=== PATIENT | male | born 1985 | race Caucasian/White ===

== ENCOUNTER 2016-08-17 21:55 | Emergency (ER) | payer SELFPAY ==
[2016-08-17 22:03] VITALS: BP 129/69; PULSE 69; TEMP 97.5; BMI 23.2
--- NOTE | 2016-08-17 22:44 | EDPRACDOC ---
- General Information Chief Complaint: Back Pain Stated Complaint: BACK PAIN Time Seen by Provider: 08/17/16 22:40 Information Source: Patient Mode Of Arrival: Car Home Medications: Home Medications Cyclobenzaprine HCl [Flexeril] 10 mg PO TID PRN #20 tablet 08/17/16 Naproxen Sodium 500 mg PO BID PRN #20 tablet.sa 08/17/16 Allergies/Adverse Reactions: Allergies Allergy/AdvReac Type Severity Reaction Status Date / Time propoxyphene HCl Allergy Severe Nausea/Vomi Verified 08/17/16 22:00 [From Darvon] ting codeine Allergy Intermediate Itching Verified 08/17/16 22:00 - History of Present Illness Onset: 1400 today HPI: 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 Pain Location: Reports: Bilateral, Lower, Lumbar Pain Radiates To: Reports: None Pain Caused By: Reports: Lifting Circumstances: Reports: Work-related Relevant History: Reports: None Pain Severity: Reports: Severe Pain Quality: Reports: Aching, Sharp Worsened By: Reports: Movement, Twisting Associated Signs and Symptoms: Reports: None ED Past Medical History - History Reviewed Yes Nurses notes reviewed and agree except as marked - Patient Medical History GI/ History: Reports: Diverticulosis Psychological History: Denies: Depression Systemic History: Denies: Cancer Surgical History: Reports: Hernia Surgery - Social Medical History Smoking Status: Heavy tobacco smoker (5 or more cigarettes/day or daily pipe/ cigar) EDM Review of Systems - Review of Systems Constitutional: negative: Chills, Fever Genitourinary: negative: Dysuria, Frequency Neurological: negative: Dizziness, Numbness, Weakness Musculoskeletal: Back Integumentary: No Symptoms Reported - Physical Exam Constitutional: Alert (Awake), No apparent distress Oriented to: Time, Person, Place Last recorded Vital Signs: Last Vital Signs Temp 97.5 F 08/17/16 22:00 Pulse 69 08/17/16 22:00 Resp 18 08/17/16 22:00 BP 129/69 08/17/16 22:00 Pulse Ox 99 08/17/16 22:00 Oxygen Pulse Oxygen Saturation 99 O2 Device Oxygen Flow Rate Fraction of Inspired Oxygen ( FIO2) - HEENT Head: Normal ( normocephalic) - Integumentary Skin: Normal, Warm, Dry Lymphatics: Normal (no adenopathy) - Neurologic Memory Impaired: Normal Motor Function: Normal (Normal tone, Pulses 2+ No cyanosis or edema, FROM) Cranial Nerve: Normal (CN II-X11 intact sensation, strength 5/5) Cerebellar: Normal Mood Description: Normal Perception: Normal ED Back Exam - Neurologic Motor Deficit: None - Musculoskeletal Cervical: Normal Thoracic: Normal Lumbar: Tender Midline: Normal Paraspinous: Tender Straight Leg Raise: Negative Pelvis: Normal, Tender - Differential Diagnosis DJD, HNP, Musculoskeletal pain, Strain Decision Time to Discharge: 22:45 - Departure Disposition: Home Condition: Stable Final Diagnosis: ACUTE LUMBAR STRAIN Instructions: Thoracic (Lumbar) Strain Education/Counseling Given To: Patient Education/Counseling Given Regarding: Diagnosis, Treatment, Prognosis, Follow Up Referrals: Yazan Castillo MD [Staff Physician] - One Week Prescriptions: New Cyclobenzaprine HCl [Flexeril] 10 mg PO TID PRN #20 tablet PRN Reason: Muscle Spasms Naproxen Sodium 500 mg PO BID PRN #20 tablet.sa PRN Reason: Pain Additional Instructions: Back Pain: apply warm compresses to affected area 20 mins at a time 4 - 5 times daily as needed for pain
[2016-08-17] MEDS ORDERED: CYCLOBENZAPRINE 10 MG TAB PO ONE (22:45)
[2016-08-17] MEDS ORDERED: KETOROLAC TROMETHAMINE 10 MG TAB PO ONE (22:45)
== END 2016-08-17 22:57 | disposition home or self-care (01) ==
LOC: ED 21:55
DX: S39.012A Strain of muscle, fascia and tendon of lower back, initial encounter (principal); X50.0XXA Overexertion from strenuous movement or load, initial encounter; F17.200 Nicotine dependence, unspecified, uncomplicated
CPT/HCPCS: 99283; J3490